=== PATIENT | male | born 1970 | race American Indian/Alaskan Native ===

== ENCOUNTER 2019-05-29 09:58 | Emergency (ER) | payer OTHER ==
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
[2019-05-29] MEDS ORDERED: traMADol 50 MG TAB PO ONE (12:56)
[2019-05-29] MEDS ORDERED: CYCLOBENZAPRINE 10 MG TAB PO ONE (12:56)
[2019-05-29 13:14] VITALS: BP 139/72
== END 2019-05-29 13:52 | disposition home or self-care (01) ==
LOC: ED 09:58
DX: S39.012A Strain of muscle, fascia and tendon of lower back, initial encounter (principal); S16.1XXA Strain of muscle, fascia and tendon at neck level, initial encounter; Z79.899 Other long term (current) drug therapy; V49.59XA Passenger injured in collision with other motor vehicles in traffic accident, initial encounter; Y93.89 Activity, other specified; Y92.410 Unspecified street and highway as the place of occurrence of the external cause; Y99.8 Other external cause status